=== PATIENT | female | born 1995 ===

== ENCOUNTER 2017-09-24 22:59 | Emergency (ER) | payer OTHER ==
[2017-09-24 23:20] VITALS: BP 124/68; PULSE 76; RESP 17; TEMP 98.8; O2SAT 100
[2017-09-24] MEDS ORDERED: Sodium Chloride 0.9% 1,000 ML IV STA (23:28)
--- NOTE | 2017-09-24 23:31 | ED PDOC ---
HPI: Abdomen Time Seen by Provider: 09/24/17 23:15 Chief Complaint (Nursing): GI Problem Chief Complaint (Provider): vomiting History Per: Patient (22 y/o female approx 8-9weeks gestation here with vomiting multiple episodes this week. NOtes streaks of blood in vomit today. Has been taking PNV. Seen by handtools repairer with ultrasound noting IUP. No medications for vomiting currently taken.) Past Medical History Reviewed: Historical Data, Nursing Documentation, Vital Signs Vital Signs: Last Vital Signs Temp 98.8 F 09/24/17 23:09 Pulse 76 09/24/17 23:09 Resp 17 09/24/17 23:09 BP 124/68 09/24/17 23:09 Pulse Ox 100 10/02/17 05:49 - Family History Family History: States: No Known Family Hx - Home Medications Home Medications: Ambulatory Orders Medication Instructions Recorded Ondansetron ODT [Zofran ODT] 4 mg PO Q8 PRN #15 odt 09/25/17 Magnesium Citrate [[facility] 150 ml PO DAILY PRN 5 Days bottle 09/30/17 Pharmacy Magnesium Citrate] - Allergies Allergies/Adverse Reactions: Allergies Allergy/AdvReac Type Severity Reaction Status Date / Time No Known Allergies Allergy Verified 09/24/17 23:20 Review of Systems ROS Statement: Except As Marked, All Systems Reviewed And Found Negative Gastrointestinal: Positive for: Vomiting Physical Exam - Reviewed Nursing Documentation Reviewed: Yes Vital Signs Reviewed: Yes - Physical Exam Appears: Positive for: Well, Non-toxic, No Acute Distress Head Exam: Positive for: ATRAUMATIC, NORMAL INSPECTION, NORMOCEPHALIC Skin: Positive for: Normal Color, Warm, DRY Eye Exam: Positive for: EOMI, Normal appearance, PERRL ENT: Positive for: Normal ENT Inspection Neck: Positive for: Normal, Painless ROM Cardiovascular/Chest: Positive for: Regular Rate, Rhythm Respiratory: Positive for: CNT, Normal Breath Sounds Gastrointestinal/Abdominal: Positive for: Normal Exam, Bowel Sounds, Soft, Tenderness (luq tenderness) Back: Positive for: Normal Inspection Extremity: Positive for: Normal ROM Neurologic/Psych: Positive for: Alert, Oriented - Laboratory Results Result Diagrams: 09/24/17 23:42 09/24/17 23:42 - ECG O2 Sat by Pulse Oximetry: 100 - Progress ED Course And Treament: ZOFRAN 4 MG IV X 1 DOSE NS 1 LITER WIDE OPEN NO KETONES ON URINALYSIS PATIENT FEELS IMPROVED. Disposition - Clinical Impression Clinical Impression: Hyperemesis gravidarum - Patient ED Disposition Is Patient to be Admitted: No - Disposition Disposition: Routine/Home Disposition Time: 02:50 Condition: FAIR Additional Instructions: YOU CAN TAKE TUMS FOR GASTRITIS/ABDOMINAL PAIN IF NEEDED. Prescriptions: Ondansetron ODT [Zofran ODT] 4 mg PO Q8 PRN #15 odt PRN Reason: Nausea/Vomiting Instructions: Hyperemesis Gravidarum (ED) Forms: [employer] ([place]ian), [facility] ED School/Work Excuse
[2017-09-24 23:44] LABS: BASO # 0.1 K/uL (0.0-0.2); BASO % 0.4 % (0.0-2.0); EOS # 0.1 K/uL (0.0-0.7); EOS % 0.6 % (0.0-4.0); HEMOGLOBIN 11.1 g/dL (12.0-16.0); LYMPH # 1.9 K/uL (1.0-4.3); LYMPH % 12.9 % (20.0-40.0); MEAN CELL VOLUME 82.5 fl (81.0-99.0); MEAN CORPUSCULAR HEMOGLOBIN 26.5 pg (27.0-31.0); MEAN CORPUSCULAR HGB CONC 32.1 g/dL (33.0-37.0); MEAN PLATELET VOLUME 10.3 fl (7.2-11.7); MONO # 0.8 K/uL (0.0-0.8); MONO % 5.5 % (0.0-10.0); NEUT # 11.8 K/uL (1.8-7.0); NEUT % 80.6 % (50.0-75.0); RBC 4.18 Mil/uL (3.80-5.20); RED CELL DISTRIBUTION WIDTH 15.1 % (11.5-14.5); WHITE BLOOD COUNT 14.6 K/uL (4.8-10.8)
[2017-09-24 23:53] LABS: ALB/GLOB RATIO 1.1 (1.0-2.1); ALBUMIN 3.8 g/dL (3.5-5.0); ALT/SGPT 37 U/L (9-52); AST/SGOT 19 U/L (14-36); BLOOD UREA NITROGEN 5 mg/dl (7-17); CALCIUM 9.7 mg/dL (8.4-10.2); GFR AFRICAN-AMERICAN > 60; GFR NON-AFRICAN AMERICAN > 60; LIPASE 37 U/L (23-300); MAGNESIUM 1.9 MG/DL (1.6-2.3)
[2017-09-25 01:14] LABS: SQUAMOUS EPITHIAL 1 /hpf (0-5); URINE AMORPHOUS SEDIMENT FEW /ul (<OCC); URINE BACTERIA RARE (<OCC); URINE BILIRUBIN NEGATIVE (NEGATIVE); URINE BLOOD NEGATIVE (NEGATIVE); URINE CLARITY CLOUDY (Clear); URINE COLOR YELLOW (YELLOW); URINE GLUCOSE (UA) NEG (Normal); URINE LEUKOCYTE ESTERASE NEG Leu/uL (Negative); URINE NITRATE NEGATIVE (NEGATIVE); URINE PROTEIN NEGATIVE (NEGATIVE); URINE UROBILINOGEN 0.2-1.0 mg/dL (0.2-1.0)
== END 2017-09-25 02:25 | disposition home or self-care (01) ==
LOC: H.ER 22:59
DX: O21.0 Mild hyperemesis gravidarum (principal); Z3A.08 8 weeks gestation of pregnancy
CPT/HCPCS: 80053; 81003; 81025; 83690; 83735; 85025; 87086; 96361; 96374; 99283; J2405; J7040

== ENCOUNTER 2017-09-30 04:36 | Emergency (ER) | payer OTHER ==
[2017-09-30 04:55] VITALS: BP 121/73; PULSE 78; RESP 18; TEMP 98.1; O2SAT 99
--- NOTE | 2017-09-30 05:13 | ED PDOC ---
HPI: Abdomen Time Seen by Provider: 09/30/17 04:54 Chief Complaint (Nursing): GI Problem Chief Complaint (Provider): constipation History Per: Patient Additional Complaint(s): 22 y/o female presents with constipation x 3 days. Patient states she has been drinking prune juice which gives her the sensation like hse needs to use the bathroom but nothing comes out. Patient states tonight she developed rectal pain and suprapubic pain. Denies fever, vomiting, chest pain, vaginal bleeding/ discharge, urinary symptoms. Abnormal Vaginal Bleeding: No Last Menstral Period: 07/10/17 : 1 Para: 0 Miscarriage: 0 Past Medical History Reviewed: Historical Data, Nursing Documentation, Vital Signs Vital Signs: Last Vital Signs Temp 98.1 F 09/30/17 04:51 Pulse 78 09/30/17 04:51 Resp 18 09/30/17 04:51 BP 121/73 09/30/17 04:51 Pulse Ox 99 09/30/17 05:18 - Medical History PMH: No Chronic Diseases - Surgical History Surgical History: No Surg Hx - Family History Family History: States: No Known Family Hx - Living Arrangements Living Arrangements: With Family - Home Medications Home Medications: Ambulatory Orders Medication Instructions Recorded Ondansetron ODT [Zofran ODT] 4 mg PO Q8 PRN #15 odt 09/25/17 - Allergies Allergies/Adverse Reactions: Allergies Allergy/AdvReac Type Severity Reaction Status Date / Time No Known Allergies Allergy Verified 09/24/17 23:20 Review of Systems ROS Statement: Except As Marked, All Systems Reviewed And Found Negative Gastrointestinal: Positive for: Abdominal Pain, Constipation, Rectal Pain Physical Exam - Reviewed Nursing Documentation Reviewed: Yes Vital Signs Reviewed: Yes - Physical Exam Appears: Positive for: Well, Non-toxic, No Acute Distress Head Exam: Positive for: ATRAUMATIC, NORMAL INSPECTION, NORMOCEPHALIC Skin: Positive for: Normal Color Eye Exam: Positive for: Normal appearance ENT: Positive for: Normal ENT Inspection Cardiovascular/Chest: Positive for: Regular Rate, Rhythm Respiratory: Positive for: Normal Breath Sounds Gastrointestinal/Abdominal: Positive for: Bowel Sounds, Soft, Tenderness ( suprapubic) Rectal: Positive for: Hemorrhoids (external: pink, nonthrombosed) Extremity: Positive for: Normal ROM Neurologic/Psych: Positive for: Alert, Oriented - ECG O2 Sat by Pulse Oximetry: 99 - Progress ED Course And Treament: Patient actively vomiting in ED; labs, suppository, IV fluids, IV reglan ordered. Chart reviewed, patient seen in ED last week for nausea/vomiting symptoms Disposition - Clinical Impression Clinical Impression: Hyperemesis gravidarum, Constipation, Hemorrhoids, Abdominal pain during - Patient ED Disposition Is Patient to be Admitted: No - Disposition Disposition Time: 06:00 Condition: STABLE Forms: [employer] ([place]) Patient Signed Over To: Jeffery Marquez Handoff Comments: pending labs, urine, u/s, re-eval
[2017-09-30] MEDS ORDERED: Sodium Chloride 0.9% 1,000 ML IV STA (05:15)
[2017-09-30 05:48] LABS: BASO # 0.1 K/uL (0.0-0.2); BASO % 0.7 % (0.0-2.0); EOS # 0.1 K/uL (0.0-0.7); EOS % 0.9 % (0.0-4.0); HEMOGLOBIN 11.1 g/dL (12.0-16.0); LYMPH # 1.6 K/uL (1.0-4.3); LYMPH % 15.9 % (20.0-40.0); MEAN CELL VOLUME 83.6 fl (81.0-99.0); MEAN CORPUSCULAR HGB CONC 32.3 g/dL (33.0-37.0); MEAN PLATELET VOLUME 10.4 fl (7.2-11.7); MONO # 0.6 K/uL (0.0-0.8); MONO % 6.3 % (0.0-10.0); NEUT # 7.9 K/uL (1.8-7.0); NEUT % 76.2 % (50.0-75.0); RBC 4.12 Mil/uL (3.80-5.20); RED CELL DISTRIBUTION WIDTH 15.1 % (11.5-14.5); WHITE BLOOD COUNT 10.3 K/uL (4.8-10.8)
[2017-09-30 06:09] LABS: ALB/GLOB RATIO 1.2 (1.0-2.1); ALBUMIN 3.9 g/dL (3.5-5.0); ALT/SGPT 28 U/L (9-52); AST/SGOT 20 U/L (14-36); BLOOD UREA NITROGEN 7 mg/dl (7-17); CALCIUM 9.1 mg/dL (8.4-10.2); GFR AFRICAN-AMERICAN > 60; GFR NON-AFRICAN AMERICAN > 60
--- NOTE | 2017-09-30 07:21 | ED PDOC ---
- Laboratory Results Result Diagrams: 09/30/17 05:45 09/30/17 05:45 Interpretation Of Abn Labs: no acute - ECG O2 Sat by Pulse Oximetry: 99 (RA) Pulse Ox Interpretation: Normal - Progress ED Course And Treament: 918: Stable. AAOx3. Pain free. SLIUP. Fu with pcp. No vaginal bleeding. Medical Decision Making Medical Decision Making: Time: 7:00 --Patient transferred to [place] by Dr. Jeffery Marquez pending ultrasound, bloodwork, and reevaluation. Time: 8:44 US TRANSVAGINAL FINDINGS: UTERUS: Gestational sac: Single intrauterine gestation. Heart rate: 152 bpm. age (Ultrasound estimated): 11 weeks 2 days 0 weeks 6 days Bettye-gestational hemorrhage: None. Date of delivery (Ultrasound estimated) : 04/19/2018 Uterus measures 15 by 6.7 x 10.3 cm. Normal in size and appearance. CERVIX: 4.1 cm Long and closed. No cervical abnormality seen. RIGHT OVARY: Measures 3.3 x 2.4 x 2.5 cm. No mass lesion. Normal flow. LEFT OVARY: Not visualized FREE FLUID: Trace OTHER FINDINGS: None. IMPRESSION: Single intrauterine gestation with cardiac activity -ultrasound estimated age 11 weeks 2 days 0 weeks 6 days with an estimated date of delivery by ultrasound 04/19/2018. Comments: Preliminary report per V rad concordant with this report Scribe Attestation: Documented by Sudhakar Dykes, acting as a scribe for Dr. Christiano Espinosa MD Provider Scribe Attestation: All medical record entries made by the Scribe were at my direction and personally dictated by me. I have reviewed the chart and agree that the record accurately reflects my personal performance of the history, physical exam, medical decision making, and the department course for this patient. I have also personally directed, reviewed, and agree with the discharge instructions and disposition. Disposition - Clinical Impression Clinical Impression: Hyperemesis gravidarum, Constipation, Abdominal pain during - POA Present On Arrival: None - Disposition [facility] - [facility]17 Disposition: Routine/Home Disposition Time: 09:20 Condition: STABLE Additional Instructions: Return if not better in 3 days. Instructions: Abdominal Pain in (ED), Constipation (ED) Print Language: YI
--- NOTE | 2017-09-30 08:46 | US ---
PROCEDURE: OB Pelvic Ultrasound HISTORY: 9 weeks gestation, pelvic pain. LMP is 07/10/2017 COMPARISON: None available. TECHNIQUE: Transvaginal FINDINGS: UTERUS: Gestational sac: Single intrauterine gestation. Heart rate: 152 bpm. age (Ultrasound estimated): 11 weeks 2 days 0 weeks 6 days Bettye-gestational hemorrhage: None. Date of delivery (Ultrasound estimated) : 04/19/2018 Uterus measures 15 by 6.7 x 10.3 cm. Normal in size and appearance. CERVIX: 4.1 cm Long and closed. No cervical abnormality seen. RIGHT OVARY: Measures 3.3 x 2.4 x 2.5 cm. No mass lesion. Normal flow. LEFT OVARY: Not visualized FREE FLUID: Trace OTHER FINDINGS: None. IMPRESSION: Single intrauterine gestation with cardiac activity -ultrasound estimated age 11 weeks 2 days 0 weeks 6 days with an estimated date of delivery by ultrasound 04/19/2018. Comments: Preliminary report per V rad concordant with this report
== END 2017-09-30 10:00 | disposition home or self-care (01) ==
LOC: H.ER 04:36
DX: K59.00 Constipation, unspecified (principal); O21.0 Mild hyperemesis gravidarum; Z3A.09 9 weeks gestation of pregnancy; O22.41 Hemorrhoids in pregnancy, first trimester
CPT/HCPCS: 76817; 80053; 81025; 84702; 85025; 96360; 99283; J2765; J7040